=== PATIENT | female | born 1950 | race Caucasian/White ===

== ENCOUNTER 2024-10-24 12:30 | Outpatient (RCR) | payer MEDICARE, OTHER, SELFPAY | END 2025-02-21 23:59 | disposition home or self-care (01) | PROVIDERS: Visit Provider Orthopaedic Surgery Hand Surgery | DX: M18.2 Bilateral post-traumatic osteoarthritis of first carpometacarpal joints (principal); Z51.89 Encounter for other specified aftercare | CPT/HCPCS: 97035; 97140; 97165; 97530; 97535 ==